=== PATIENT | male | born 1950 | race American Indian/Alaskan Native ===

== ENCOUNTER 2016-12-18 19:37 | Emergency (ER) | payer MEDICARE ==
[2016-12-18 19:58] VITALS: BP 176/106
[2016-12-18 20:57] LABS: Basophils % (Auto) 0.7 % (0.0-1.8); Hematocrit 35.6 % (35.5-45.6); Hemoglobin 11.1 gm/dl (11.8-15.2); Mean Corpuscular HGB Conc 31 % (32-34); Mean Corpuscular Volume 83 fl (84-94); Platelet Count 149 K/mm3 (140-440); Red Blood Count 4.31 M/mm3 (3.65-5.03); Red Cell Distribution Width 18.6 % (13.2-15.2); White Blood Count 5.2 K/mm3 (4.5-11.0)
[2016-12-18 20:59] LABS: Mean Corpuscular Hemoglobin 26 pg (28-32)
[2016-12-18 21:05] LABS: Anion Gap 18 mmol/L; Blood Urea Nitrogen 15 mg/dL (9-20); Carbon Dioxide 27 mmol/L (22-30); Chloride 106.5 mmol/L (98-107); Glucose 84 mg/dL (75-100); Sodium 147 mmol/L (137-145)
--- NOTE | 2016-12-19 06:14 | ED Elopement Review ---
ED Pt Elopement review - Results review Lab results: Laboratory Tests 12/18/16 12/18/16 20:23 20:23 WBC 5.2 RBC 4.31 Hgb 11.1 L Hct 35.6 MCV 83 L MCH 26 L MCHC 31 L RDW 18.6 H Plt Count 149 Lymph % (Auto) 34.4 [place] % (Auto) 9.5 H Eos % (Auto) 2.0 Baso % (Auto) 0.7 Lymph # 1.8 [place] # 0.5 Eos # 0.1 Baso # 0.0 Seg Neutrophils % 53.4 Seg Neutrophils # 2.8 Sodium 147 H Potassium 4.0 Chloride 106.5 Carbon Dioxide 27 Anion Gap 18 BUN 15 Creatinine 1.0 Estimated GFR > 60 BUN/Creatinine Ratio 15.00 Glucose 84 Calcium 9.0 Troponin T < 0.010 - Call Back decision Pt Call Back Decision: No action required
== END 2016-12-19 00:02 | disposition left against medical advice (07) ==
LOC: ED 19:37
DX: R07.9 Chest pain, unspecified (principal); M54.2 Cervicalgia; I50.9 Heart failure, unspecified; J44.9 Chronic obstructive pulmonary disease, unspecified; I63.9 Cerebral infarction, unspecified; I25.2 Old myocardial infarction; I48.91 Unspecified atrial fibrillation; Z95.0 Presence of cardiac pacemaker; Z87.891 Personal history of nicotine dependence; Z53.21 Procedure and treatment not carried out due to patient leaving prior to being seen by health care provider
CPT/HCPCS: 36415; 80048; 84484; 85025; 93005; 93010

== ENCOUNTER 2017-01-01 22:24 | Emergency (ER) | payer MEDICARE ==
[2017-01-02 00:29] LABS: Basophils % (Auto) 0.4 % (0.0-1.8); Eosinophils % (Auto) 0.2 % (0.0-4.3); Mean Corpuscular HGB Conc 30 % (32-34); Mean Corpuscular Volume 82 fl (84-94); Platelet Count 184 K/mm3 (140-440); Red Blood Count 4.68 M/mm3 (3.65-5.03); Red Cell Distribution Width 18.3 % (13.2-15.2); White Blood Count 7.3 K/mm3 (4.5-11.0)
[2017-01-02 00:36] LABS: BUN/Creatinine Ratio 13.63; Blood Urea Nitrogen 15 mg/dL (9-20); Calcium 9.3 mg/dL (8.4-10.2); Carbon Dioxide 24 mmol/L (22-30); Glucose 83 mg/dL (75-100)
[2017-01-02 00:37] LABS: Anion Gap 22 mmol/L; Chloride 98.9 mmol/L (98-107); Hematocrit 38.3 % (35.5-45.6); Hemoglobin 11.6 gm/dl (11.8-15.2); Mean Corpuscular Hemoglobin 25 pg (28-32); Potassium 3.4 mmol/L (3.6-5.0); Sodium 141 mmol/L (137-145)
[2017-01-02 00:45] LABS: INR 1.53 (0.87-1.13); Partial Thromboplastin Time 26.4 Sec. (24.2-36.6)
[2017-01-02 05:20] VITALS: BP 136/93
[2017-01-02] MEDS ORDERED: DIPRIVAN 10 MG/ML IV ONE (09:29)
[2017-01-02] MEDS ORDERED: SUBLIMAZE ONE (09:29)
--- NOTE | 2017-01-02 09:53 | XRay Report ---
CHEST 2 VIEWS: INDICATION: Chest pain. COMPARISON: 09/18/2016 FINDINGS: PA and lateral chest radiographs demonstrate smaller/less pronounced cardiomediastinal silhouette. Stable right-sided dual chamber pacemaker, aortic knob calcifications and thoracic spondylosis. Mild horizontal right basilar atelectasis appears new. Clear remainder lungs. CONCLUSION: New mild right basilar atelectasis and interval resolution of mild congestion/cardiomegaly, as described. Please correlate. Thank you for the opportunity to participate in this patient's care.
== END 2017-01-02 05:20 | disposition left against medical advice (07) ==
LOC: ED 22:24
DX: R07.9 Chest pain, unspecified (principal); M54.2 Cervicalgia; Z53.21 Procedure and treatment not carried out due to patient leaving prior to being seen by health care provider
CPT/HCPCS: 36415; 71020; 80048; 84484; 85025; 85610; 85730; 93005; 93010; J2704; J3010

== ENCOUNTER 2017-01-20 23:33 | Emergency (ER) | payer MEDICARE | END 2017-01-21 00:50 | disposition left against medical advice (07) | LOC: ED 23:33 | DX: H57.11 Ocular pain, right eye (principal); Z53.21 Procedure and treatment not carried out due to patient leaving prior to being seen by health care provider ==

== ENCOUNTER 2017-01-28 23:02 | Emergency (ER) | payer MEDICARE ==
[2017-01-29 04:53] VITALS: BP 142/101
[2017-01-29 05:57] LABS: INR 1.63 (0.87-1.13)
[2017-01-29 05:58] LABS: Partial Thromboplastin Time 29.8 Sec. (24.2-36.6)
[2017-01-29 06:04] LABS: Anion Gap 18 mmol/L; Blood Urea Nitrogen 22 mg/dL (9-20); Calcium 9.1 mg/dL (8.4-10.2); Carbon Dioxide 24 mmol/L (22-30); Chloride 103.8 mmol/L (98-107); Glucose 94 mg/dL (75-100); Potassium 4.4 mmol/L (3.6-5.0); Sodium 141 mmol/L (137-145)
[2017-01-29 06:07] LABS: Hematocrit 32.9 % (35.5-45.6); Hemoglobin 10.3 gm/dl (11.8-15.2); Mean Corpuscular HGB Conc 31 % (32-34); Mean Corpuscular Volume 79 fl (84-94); Platelet Count 169 K/mm3 (140-440); Red Blood Count 4.15 M/mm3 (3.65-5.03); Red Cell Distribution Width 17.4 % (13.2-15.2); White Blood Count 4.4 K/mm3 (4.5-11.0)
[2017-01-29 06:09] LABS: Mean Corpuscular Hemoglobin 25 pg (28-32)
[2017-01-29 07:03] LABS: Diff Status Complete
[2017-01-29 07:05] LABS: Basophils % (Auto) 1.1 % (0.0-1.8); Eosinophils % (Auto) 2.1 % (0.0-4.3)
--- NOTE | 2017-01-30 21:19 | ED Elopement Review ---
ED Pt Elopement review - Results review Lab results: Laboratory Tests 01/29/17 01/29/17 01/29/17 05:24 05:24 05:24 WBC 4.4 L RBC 4.15 Hgb 10.3 L Hct 32.9 L MCV 79 L MCH 25 L MCHC 31 L RDW 17.4 H Plt Count 169 Lymph % (Auto) 26.6 [place] % (Auto) 12.5 H Eos % (Auto) 2.1 Baso % (Auto) 1.1 Lymph # 1.2 [place] # 0.6 Eos # 0.1 Baso # 0.1 Add Manual Diff Complete Seg Neutrophils % 57.7 Seg Neutrophils # 2.5 PT 19.3 H INR 1.63 H APTT 29.8 Sodium 141 Potassium 4.4 Chloride 103.8 Carbon Dioxide 24 Anion Gap 18 BUN 22 H Creatinine 1.0 Estimated GFR > 60 BUN/Creatinine Ratio 22.00 Glucose 94 Calcium 9.1 - Call Back decision Pt Call Back Decision: No action required
== END 2017-01-29 06:20 | disposition left against medical advice (07) ==
LOC: ED 23:02
DX: M79.89 Other specified soft tissue disorders (principal); M25.571 Pain in right ankle and joints of right foot; M25.572 Pain in left ankle and joints of left foot; Z53.21 Procedure and treatment not carried out due to patient leaving prior to being seen by health care provider
CPT/HCPCS: 36415; 80048; 85025; 85610; 85730; 93005; 93010

== ENCOUNTER 2017-02-01 22:14 | Emergency (ER) | payer MEDICARE ==
[2017-02-01 22:33] VITALS: BP 113/74
== END 2017-02-02 01:35 | disposition left against medical advice (07) ==
LOC: ED 22:14
DX: R06.02 Shortness of breath (principal); I50.9 Heart failure, unspecified; J44.9 Chronic obstructive pulmonary disease, unspecified; I63.9 Cerebral infarction, unspecified; I25.2 Old myocardial infarction; I10 Essential (primary) hypertension; Z95.0 Presence of cardiac pacemaker; Z53.21 Procedure and treatment not carried out due to patient leaving prior to being seen by health care provider

== ENCOUNTER 2017-02-03 23:18 | Emergency (ER) | payer MEDICARE ==
[2017-02-04 00:27] LABS: Basophils % (Auto) 0.5 % (0.0-1.8); Eosinophils % (Auto) 1.6 % (0.0-4.3); Hematocrit 36.3 % (35.5-45.6); Hemoglobin 11.3 gm/dl (11.8-15.2); Mean Corpuscular HGB Conc 31 % (32-34); Mean Corpuscular Volume 79 fl (84-94); Platelet Count 170 K/mm3 (140-440); Red Blood Count 4.58 M/mm3 (3.65-5.03); Red Cell Distribution Width 17.7 % (13.2-15.2)
[2017-02-04 00:35] LABS: Mean Corpuscular Hemoglobin 25 pg (28-32)
[2017-02-04 00:38] LABS: INR 2.01 (0.87-1.13)
[2017-02-04 00:50] LABS: Anion Gap 17 mmol/L; BUN/Creatinine Ratio 13.63; Blood Urea Nitrogen 15 mg/dL (9-20); Calcium 9.2 mg/dL (8.4-10.2); Carbon Dioxide 26 mmol/L (22-30); Glucose 76 mg/dL (75-100); Potassium 4.1 mmol/L (3.6-5.0); Sodium 142 mmol/L (137-145)
[2017-02-04 05:04] VITALS: BP 166/105
--- NOTE | 2017-02-06 01:06 | ED Elopement Review ---
ED Pt Elopement review - Results review Lab results: Laboratory Tests 02/04/17 02/04/17 02/04/17 00:01 00:01 00:01 WBC 5.0 RBC 4.58 Hgb 11.3 L Hct 36.3 MCV 79 L MCH 25 L MCHC 31 L RDW 17.7 H Plt Count 170 Lymph % (Auto) 31.8 [place] % (Auto) 14.5 H Eos % (Auto) 1.6 Baso % (Auto) 0.5 Lymph # 1.6 [place] # 0.7 Eos # 0.1 Baso # 0.0 Seg Neutrophils % 51.6 Seg Neutrophils # 2.6 PT 22.8 H INR 2.01 H Sodium 142 Potassium 4.1 Chloride 103.0 Carbon Dioxide 26 Anion Gap 17 BUN 15 Creatinine 1.1 Estimated GFR > 60 BUN/Creatinine Ratio 13.63 Glucose 76 Calcium 9.2 - Call Back decision Pt Call Back Decision: No action required
== END 2017-02-04 05:00 | disposition left against medical advice (07) ==
LOC: ED 23:18
DX: M79.652 Pain in left thigh (principal); I50.9 Heart failure, unspecified; J44.9 Chronic obstructive pulmonary disease, unspecified; I25.2 Old myocardial infarction; I10 Essential (primary) hypertension; Z95.0 Presence of cardiac pacemaker; Z53.21 Procedure and treatment not carried out due to patient leaving prior to being seen by health care provider
CPT/HCPCS: 36415; 80048; 85025; 85610

== ENCOUNTER 2017-02-05 23:15 | Emergency (ER) | payer MEDICARE ==
[2017-02-06] MEDS ORDERED: DUONEB 0.5 MG-3 MG/3 ML SOLN IH ONE (01:29)
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
[2017-02-06 02:31] LABS: Basophils % (Auto) 1.8 % (0.0-1.8); Eosinophils % (Auto) 1.5 % (0.0-4.3); Hematocrit 33.1 % (35.5-45.6); Hemoglobin 10.4 gm/dl (11.8-15.2); Mean Corpuscular HGB Conc 31 % (32-34); Mean Corpuscular Hemoglobin 25 pg (28-32); Mean Corpuscular Volume 78 fl (84-94); Platelet Count 143 K/mm3 (140-440); Red Blood Count 4.23 M/mm3 (3.65-5.03); Red Cell Distribution Width 17.6 % (13.2-15.2); White Blood Count 4.3 K/mm3 (4.5-11.0)
[2017-02-06 02:48] LABS: Anion Gap 17 mmol/L; BUN/Creatinine Ratio 14.54; Blood Urea Nitrogen 16 mg/dL (9-20); Calcium 8.8 mg/dL (8.4-10.2); Carbon Dioxide 24 mmol/L (22-30); Chloride 104.8 mmol/L (98-107); Glucose 85 mg/dL (75-100); Potassium 4.3 mmol/L (3.6-5.0); Sodium 141 mmol/L (137-145)
[2017-02-06 02:55] LABS: Partial Thromboplastin Time < 20.0 Sec. (24.2-36.6)
[2017-02-06 03:26] VITALS: BP 145/87
[2017-02-06 03:52] LABS: INR > 17.67 (0.87-1.13)
--- NOTE | 2017-02-06 08:51 | XRay Report ---
Single view chest: Compared to 01/14/17. History: Dyspnea. Findings: Borderline cardiomegaly. Trachea is midline. Low volume lungs. Mild pulmonary venous congestion. No consolidation or pleural effusion. Stable pacemaker. Impression: Pulmonary venous congestion may be due to low volume lungs , possibility of early CHF cannot be excluded.
== END 2017-02-06 03:57 | disposition left against medical advice (07) ==
LOC: ED 23:15
DX: R06.00 Dyspnea, unspecified (principal); R79.1 Abnormal coagulation profile; I10 Essential (primary) hypertension; I25.2 Old myocardial infarction; I50.9 Heart failure, unspecified; J44.9 Chronic obstructive pulmonary disease, unspecified; Z95.0 Presence of cardiac pacemaker; Z86.73 Personal history of transient ischemic attack (TIA), and cerebral infarction without residual deficits
CPT/HCPCS: 36415; 71010; 80048; 83880; 84484; 85025; 85610; 85730; 93005; 93010; 94640

== ENCOUNTER 2017-09-12 10:11 | Emergency (ER) | payer MEDICARE ==
[2017-09-12 11:01] VITALS: BP 133/77
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
[2017-09-12 11:43] LABS: Basophils % (Auto) 0.6 % (0.0-1.8); Eosinophils % (Auto) 1.4 % (0.0-4.3); Hematocrit 40.5 % (35.5-45.6); Mean Corpuscular HGB Conc 32 % (32-34); Mean Corpuscular Hemoglobin 28 pg (28-32); Mean Corpuscular Volume 88 fl (84-94); Platelet Count 167 K/mm3 (140-440); Red Blood Count 4.58 M/mm3 (3.65-5.03); Red Cell Distribution Width 14.7 % (13.2-15.2); White Blood Count 5.9 K/mm3 (4.5-11.0)
[2017-09-12 11:55] LABS: INR 0.97 (0.87-1.13)
[2017-09-12 11:56] LABS: Partial Thromboplastin Time 25.1 Sec. (24.2-36.6)
[2017-09-12 12:07] LABS: Alanine Aminotransferase 21 units/L (7-56); Albumin 4.1 g/dL (3.9-5); Albumin/Globulin Ratio 1.6 %; Alkaline Phosphatase 48 units/L (35-129); Anion Gap 16 mmol/L; BUN/Creatinine Ratio 14; Blood Urea Nitrogen 17 mg/dL (9-20); Calcium 9.2 mg/dL (8.4-10.2); Carbon Dioxide 31 mmol/L (22-30); Chloride 104.9 mmol/L (98-107); Glucose 75 mg/dL (75-100); Potassium 3.8 mmol/L (3.6-5.0); Sodium 148 mmol/L (137-145); Total Protein 6.7 g/dL (6.3-8.2)
--- NOTE | 2017-09-12 14:10 | XRay Report ---
Chest 2 views: Compared to 07/15/17. History: Chest pain. Findings: Normal cardiomediastinal silhouette. Trachea is midline. No consolidation, pneumothorax or pleural effusion. Stable pacemaker. Impression: No acute cardiopulmonary findings.
--- NOTE | 2017-09-13 07:22 | Vascular Lab Report ---
LEFT UPPER EXTREMITY VENOUS DUPLEX: REASON FOR EXAM: Pain of the left upper extremity COMMENTS ON THE LEFT: All arm veins visualized are freely compressible without evidence of internal echogenicity. The subclavian and internal jugular veins are free of thrombus. Flow is spontaneous and phasic throughout. COMMENTS ON THE RIGHT: The subclavian and internal jugular veins are free of thrombus. IMPRESSION: No evidence of acute or chronic deep venous thrombosis in the left upper extremity.
== END 2017-09-12 20:10 | disposition left against medical advice (07) ==
LOC: ED 10:11
DX: R51 Headache (principal); M54.2 Cervicalgia; Z53.21 Procedure and treatment not carried out due to patient leaving prior to being seen by health care provider
CPT/HCPCS: 36415; 71020; 80053; 83880; 84484; 85025; 85610; 85730; 93005; 93010

== ENCOUNTER 2017-09-15 19:17 | Inpatient (IN) | payer MEDICARE ==
[2017-09-15 20:10] LABS: Basophils % (Auto) 0.9 % (0.0-1.8); Eosinophils % (Auto) 1.1 % (0.0-4.3); Hematocrit 37.7 % (35.5-45.6); Hemoglobin 12.2 gm/dl (11.8-15.2); Mean Corpuscular HGB Conc 32 % (32-34); Mean Corpuscular Hemoglobin 29 pg (28-32); Mean Corpuscular Volume 89 fl (84-94); Platelet Count 142 K/mm3 (140-440); Red Blood Count 4.25 M/mm3 (3.65-5.03); Red Cell Distribution Width 14.4 % (13.2-15.2); White Blood Count 5.2 K/mm3 (4.5-11.0)
[2017-09-15 20:20] LABS: INR 0.93 (0.87-1.13); Partial Thromboplastin Time 21.9 Sec. (24.2-36.6)
[2017-09-15 20:32] LABS: Creatine Kinase 175 units/L (55-170)
[2017-09-15 20:44] LABS: Alanine Aminotransferase 26 units/L (7-56); Albumin 3.7 g/dL (3.9-5); Albumin/Globulin Ratio 1.7 %; Alkaline Phosphatase 56 units/L (35-129); Anion Gap 13 mmol/L; BUN/Creatinine Ratio 10; Blood Urea Nitrogen 10 mg/dL (9-20); Calcium 8.9 mg/dL (8.4-10.2); Carbon Dioxide 30 mmol/L (22-30); Chloride 104.5 mmol/L (98-107); Glucose 83 mg/dL (75-100); Potassium 4.6 mmol/L (3.6-5.0); Sodium 143 mmol/L (137-145); Total Protein 5.9 g/dL (6.3-8.2)
[2017-09-15] MEDS ORDERED: DILAUDID IV ONE (21:09)
--- NOTE | 2017-09-15 21:09 | Cat Scan Report ---
FINAL REPORT EXAM: CT HEAD/BRAIN WO CON HISTORY: suspected stroke TECHNIQUE: Standard unenhanced CT of the head at 5.0 millimeter axial increments. PRIORS: CT head 07/15/2017 FINDINGS: The ventricular system is normal in size and configuration. There is no evidence for parenchymal volume loss. There is no evidence for mass lesion, mass effect, midline shift, acute intracranial hemorrhage, or acute ischemia/ infarction. No evidence for acute skull fracture is seen. No abnormality in the overlying scalp soft tissues is seen. Visualized paranasal sinuses are clear. IMPRESSION: Negative CT of the head. No acute intracranial process noted. No change.
--- NOTE | 2017-09-15 22:09 | Emergency Department Report ---
ED Neuro Deficit HPI - General Chief Complaint: Neuro Symptoms/Deficit Stated Complaint: GENERAL ILLNESS Time Seen by Provider: 09/15/17 20:50 Source: patient, EMS Mode of arrival: Stretcher Limitations: No Limitations - History of Present Illness Initial Comments: 66 YO MALE WHO HAS A H/O MULTIPLE CVA AT 1500 TODAY BEGAN LEFT SIDED NECK PAIN, WEAKNESS IN HIS LEFT LEG AND ARM. PT HAS A LEFT SIDED CVA ABOUT A MONTH AGO WHICH LEFT HIM WITH RESIDUAL LEFT SIDED WEAKNESS. DENIES ANY SPEECH PROBLEMS , THOUGH PROBLEMS WHILE THESE SXS WERE OCCURING. HIS NECK PAIN HE CONSIDERS TO BE A 06/15. -: Sudden History of same: Yes Place: home Severity: moderate Quality: weak Improves With: rest Worsens With: none On Anticoagulants: Yes Context: sudden onset Associated Symptoms: other (NECK PAIN) Treatments Prior to Arrival: none - Related Data Home Medications: Home Medications Medication Instructions Recorded Confirmed Last Taken Budesoni/Formotero 160-4.5(Nf) 2 puff IH BID 05/13/16 07/15/17 05/13/16 [Symbicort 160-4.5 (Nf)] Furosemide [Lasix TAB] 40 mg PO DAILY PRN 02/06/17 07/15/17 Unknown Lisinopril [Zestril TAB] 10 mg PO QDAY 06/11/17 07/15/17 Unknown Previous Rx's Medication Instructions Recorded Last Taken Type ALBUTEROL Inhaler [ProAir HFA 2 puff IH QID PRN #30 container 09/20/16 05/13/16 Rx Inhaler] Simvastatin [Zocor TAB] 80 mg PO QHS #30 tablet 09/27/16 Unknown Rx ALBUTEROL NEB's [Proventil 0.083% 2.5 mg IH QIDRT PRN #30 day 07/19/17 Unknown Rx NEBS] Apixaban [Eliquis] 5 mg PO BID #30 day 07/19/17 Unknown Rx Carvedilol [Coreg] 25 mg PO BID #60 tablet 07/19/17 Unknown Rx Methimazole 20 mg PO DAILY #30 day 07/19/17 Unknown Rx Allergies/Adverse Reactions: Allergies Allergy/AdvReac Type Severity Reaction Status Date / Time No Known Allergies Allergy Verified 09/15/17 19:29 ED Review of Systems ROS: Stated complaint: GENERAL ILLNESS Other details as noted in HPI Constitutional: denies: chills, fever Eyes: denies: eye pain, eye discharge, vision change ENT: denies: ear pain, throat pain Respiratory: denies: cough, shortness of breath, wheezing Cardiovascular: denies: chest pain, palpitations Endocrine: no symptoms reported Gastrointestinal: denies: abdominal pain, nausea, diarrhea Genitourinary: denies: urgency, dysuria Musculoskeletal: other (NECK PAIN). denies: back pain, joint swelling, arthralgia Skin: denies: rash, lesions Neurological: denies: headache, weakness, paresthesias Psychiatric: denies: anxiety, depression Hematological/Lymphatic: denies: easy bleeding, easy bruising ED Past Medical Hx - Past Medical History Previous Medical History?: Yes Hx Hypertension: Yes Hx CVA: Yes Hx Heart Attack/AMI: Yes Hx Congestive Heart Failure: Yes Hx Diabetes: No Hx Pulmonary Embolism: No Hx Kidney Stones: No Hx Asthma: No Hx COPD: Yes Hx Tuberculosis: No Hx Dementia: No Hx HIV: No Additional medical history: Afib - Surgical History Past Surgical History?: Yes Hx Coronary Stent: Yes Hx Pacemaker: Yes Hx Cholecystectomy: No - Social History Smoking Status: Former Smoker Substance Use Type: None - Medications Home Medications: Home Medications Medication Instructions Recorded Confirmed Last Taken Type Budesoni/Formotero 160-4.5(Nf) 2 puff IH BID 05/13/16 07/15/17 05/13/16 History [Symbicort 160-4.5 (Nf)] ALBUTEROL Inhaler [ProAir HFA 2 puff IH QID PRN #30 container 09/20/16 07/15/17 05/13/16 Rx Inhaler] Simvastatin [Zocor TAB] 80 mg PO QHS #30 tablet 09/27/16 07/15/17 Unknown Rx Furosemide [Lasix TAB] 40 mg PO DAILY PRN 02/06/17 07/15/17 Unknown History Lisinopril [Zestril TAB] 10 mg PO QDAY 06/11/17 07/15/17 Unknown History ALBUTEROL NEB's [Proventil 0.083% 2.5 mg IH QIDRT PRN #30 day 07/19/17 Unknown Rx NEBS] Apixaban [Eliquis] 5 mg PO BID #30 day 07/19/17 Unknown Rx Carvedilol [Coreg] 25 mg PO BID #60 tablet 07/19/17 Unknown Rx Methimazole 20 mg PO DAILY #30 day 07/19/17 07/15/17 Unknown Rx ED Neuro Physical Exam - General Limitations: No Limitations General appearance: alert, in no apparent distress Suspected Stroke: Yes - Head Head exam: Present: atraumatic, normocephalic - Eye Eye exam: Present: normal appearance - ENT ENT exam: Present: mucous membranes moist - Neck Neck exam: Present: normal inspection - Respiratory Respiratory exam: Present: normal lung sounds bilaterally. Absent: respiratory distress - Cardiovascular Cardiovascular Exam: Present: regular rate, normal rhythm, normal heart sounds. Absent: systolic murmur, diastolic murmur, rubs, gallop - GI/Abdominal GI/Abdominal exam: Present: soft, normal bowel sounds. Absent: tenderness, guarding, rebound - Rectal Rectal exam: Present: deferred - Extremities Exam Extremities exam: Present: normal inspection - Expanded Lower Extremity Exam Left Neuro vascular tendon exam: Present: motor deficit (3/5 WEAKNESS ), sensory deficit (NUMB COMPARED TO RIGHT LEG) - Back Exam Back exam: Present: normal inspection - Neurological Exam Neurological exam: Present: alert, oriented X3, CN II-XII intact, abnormal gait (USES CANE), motor sensory deficit (LEFT SIDE UPPER AND LOWER), other (LEFT UPPER EXTREMITY DRIFT) - NIHSS Assessment Interval: Baseline (PT ASSESSED 5HR AFTER SXS ONSET) 1a. Level of Consciousness: alert 1b. LOC Questions: answers correctly 1c. LOC Commands: performs tasks correctly 2. Best Gaze: normal 3. Visual: no visual loss 4. Facial Palsy: normal symmetrical movement 5b. Motor Arm Right: no drift 5a. Motor Arm Left: drift 6a. Motor Leg Left: some gravity effort 6b. Motor Leg Right: no drift 7. Limb Ataxia: present 2 limbs 8. Sensory: mild/moderate sensory loss (SIDE) 9. Best Language: no aphasia 10. Dysarthria: normal 11. Extinction/Inattention: no abnormality Total Score: 6 Stroke Severity: Moderate Stroke - Psychiatric Psychiatric exam: Present: normal affect, normal mood - Skin Skin exam: Present: warm, dry, intact, normal color. Absent: rash ED Course Vital Signs 09/15/17 09/15/17 09/15/17 19:25 19:26 19:30 Temperature 97.4 F L Pulse Rate 61 62 60 Respiratory 18 13 18 Rate Blood Pressure 156/90 149/93 O2 Sat by Pulse 100 84 100 Oximetry 09/15/17 09/15/17 09/15/17 19:46 20:00 20:16 Temperature Pulse Rate 60 62 Respiratory 12 15 Rate Blood Pressure 148/92 148/92 148/92 O2 Sat by Pulse 99 98 100 Oximetry 09/15/17 09/15/17 09/15/17 20:30 20:46 21:00 Temperature Pulse Rate 61 61 60 Respiratory 10 L 9 L 12 Rate Blood Pressure 148/92 148/92 148/92 O2 Sat by Pulse 98 89 93 Oximetry 09/15/17 09/15/17 09/15/17 21:16 21:30 22:18 Temperature Pulse Rate 60 61 Respiratory 10 L 12 Rate Blood Pressure 152/85 152/85 141/92 O2 Sat by Pulse 90 88 95 Oximetry 09/15/17 09/15/17 09/15/17 22:30 22:46 23:00 Temperature Pulse Rate Respiratory Rate Blood Pressure 141/92 141/92 141/92 O2 Sat by Pulse 94 95 93 Oximetry 09/15/17 09/15/17 09/15/17 23:16 23:30 23:46 Temperature Pulse Rate Respiratory Rate Blood Pressure 133/83 133/83 133/83 O2 Sat by Pulse 97 93 89 Oximetry 09/16/17 09/16/17 00:00 00:35 Temperature 97.7 F Pulse Rate 61 Respiratory 18 Rate Blood Pressure 145/94 157/98 O2 Sat by Pulse 100 97 Oximetry - Lab Data Result diagrams: 09/15/17 20:00 09/15/17 20:00 Lab Results 09/15/17 09/15/17 09/15/17 Range/Units 20:00 20:00 20:00 WBC 5.2 (4.5-11.0) K/mm3 RBC 4.25 (3.65-5.03) M/mm3 Hgb 12.2 (11.8-15.2) gm/dl Hct 37.7 (35.5-45.6) % MCV 89 (84-94) fl MCH 29 (28-32) pg MCHC 32 (32-34) % RDW 14.4 (13.2-15.2) % Plt Count 142 (140-440) K/mm3 Lymph % (Auto) 30.3 (13.4-35.0) % [place] % (Auto) 11.2 H (0.0-7.3) % Eos % (Auto) 1.1 (0.0-4.3) % Baso % (Auto) 0.9 (0.0-1.8) % Lymph # 1.6 (1.2-5.4) K/mm3 [place] # 0.6 (0.0-0.8) K/mm3 Eos # 0.1 (0.0-0.4) K/mm3 Baso # 0.0 (0.0-0.1) K/mm3 Seg Neutrophils % 56.5 (40.0-70.0) % Seg Neutrophils # 3.0 (1.8-7.7) K/mm3 PT 12.9 (12.2-14.9) Sec. INR 0.93 (0.87-1.13) APTT 21.9 L (24.2-36.6) Sec. Thrombin Time 15.6 (15.1-19.6) Sec. Sodium (137-145) mmol/L Potassium (3.6-5.0) mmol/L Chloride (98-107) mmol/L Carbon Dioxide (22-30) mmol/L Anion Gap mmol/L BUN (9-20) mg/dL Creatinine (0.8-1.5) mg/dL Estimated GFR ml/min BUN/Creatinine Ratio % Glucose (75-100) mg/dL Calcium (8.4-10.2) mg/dL Total Bilirubin (0.1-1.2) mg/dL AST (5-40) units/L ALT (7-56) units/L Alkaline Phosphatase (35-129) units/L Total Creatine Kinase 175 H (55-170) units/L CK-MB (CK-2) 3.0 (0.0-4.0) ng/mL CK-MB (CK-2) Rel Index 1.7 (0-4) Troponin T < 0.010 (0.00-0.029) ng/mL Total Protein (6.3-8.2) g/dL Albumin (3.9-5) g/dL Albumin/Globulin Ratio % 09/15/ Range/Units 20:00 WBC (4.5-11.0) K/mm3 RBC (3.65-5.03) M/mm3 Hgb (11.8-15.2) gm/dl Hct (35.5-45.6) % MCV (84-94) fl MCH (28-32) pg MCHC (32-34) % RDW (13.2-15.2) % Plt Count (140-440) K/mm3 Lymph % (Auto) (13.4-35.0) % [place] % (Auto) (0.0-7.3) % Eos % (Auto) (0.0-4.3) % Baso % (Auto) (0.0-1.8) % Lymph # (1.2-5.4) K/mm3 [place] # (0.0-0.8) K/mm3 Eos # (0.0-0.4) K/mm3 Baso # (0.0-0.1) K/mm3 Seg Neutrophils % (40.0-70.0) % Seg Neutrophils # (1.8-7.7) K/mm3 PT (12.2-14.9) Sec. INR (0.87-1.13) APTT (24.2-36.6) Sec. Thrombin Time (15.1-19.6) Sec. Sodium 143 (137-145) mmol/L Potassium 4.6 D (3.6-5.0) mmol/L Chloride 104.5 (98-107) mmol/L Carbon Dioxide 30 (22-30) mmol/L Anion Gap 13 mmol/L BUN 10 (9-20) mg/dL Creatinine 1.0 (0.8-1.5) mg/dL Estimated GFR > 60 ml/min BUN/Creatinine Ratio 10 % Glucose 83 (75-100) mg/dL Calcium 8.9 (8.4-10.2) mg/dL Total Bilirubin 0.40 (0.1-1.2) mg/dL AST 19 (5-40) units/L ALT 26 (7-56) units/L Alkaline Phosphatase 56 (35-129) units/L Total Creatine Kinase (55-170) units/L CK-MB (CK-2) (0.0-4.0) ng/mL CK-MB (CK-2) Rel Index (0-4) Troponin T (0.00-0.029) ng/mL Total Protein 5.9 L (6.3-8.2) g/dL Albumin 3.7 L (3.9-5) g/dL Albumin/Globulin Ratio 1.7 % - EKG Data EKG shows normal: sinus rhythm, axis, intervals - Radiology Data Radiology results: report reviewed (CT HEAD; ANO ACUTEFINDINGS CTA NECK: NEGATIVE FOR CAROTID DISSECTION,MILD STENOSIS) Critical care attestation.: If time is entered above; I have spent that time in minutes in the direct care of this critically ill patient, excluding procedure time. ED Disposition Clinical Impression: Neck pain CVA (cerebral vascular accident) Qualifiers: CVA mechanism: unspecified Qualified Code(s): I63.9 - Cerebral infarction, unspecified Disposition: OP ADMIT IP TO THIS HOSP Is pt being admited?: Yes Condition: Stable Time of Disposition: 22:21
--- NOTE | 2017-09-15 22:22 | Cat Scan Report ---
FINAL REPORT PROCEDURE: CT ANGIO NECK TECHNIQUE: Computerized tomographic angiography of the head and neck was performed after the IV injection of iodinated nonionic contrast including image processing. The image data was postprocessed using 2-dimensional multiplanar reformatted (MPR) and 3-dimensional (MIP and/or volume rendered) techniques. HISTORY: left neck pain, cva sx,?dissection carotids COMPARISON: CTA exam dated May 13, 2016 FINDINGS: CTA head: Vertebral arteries appear codominant. Tiny right posterior communicating artery is suspected. P1 segments appear present. Tiny anterior communicating artery is seen. No intracranial arterial stenosis or aneurysm is seen. CTA neck: No vertebral artery stenosis or dissection is seen. Common carotid arteries display no abnormalities. In the bilateral carotid bifurcations there are small foci of partially calcified plaque. This causes less than 10 percent stenosis bilaterally. No carotid dissection is seen. IMPRESSION: Minimal plaque in the carotid bifurcations causes no significant stenosis. No abnormalities are seen with the [place] of [place].
[2017-09-15] MEDS ORDERED: DULCOLAX PR PRN (22:44)
[2017-09-15] MEDS ORDERED: TYLENOL PO PRN (22:44)
[2017-09-15] MEDS ORDERED: MILK OF MAGNESIA PO PRN (22:44)
[2017-09-15] MEDS ORDERED: ZOFRAN IV PRN (22:44)
--- NOTE | 2017-09-15 23:39 | History and Physical Report ---
History of Present Illness Date of examination: 09/16/17 Date of admission: 09/15/2017 Chief complaint: Chief complaint: Left-sided weakness since a.m. History of present illness: DELVIS: 66-year-old -[place] male with past medical history of cerebrovascular accident and able to walk with the help of cane comes in for acute onset of left -sided weakness especially in the lower extremity and unable to walk since this morning. Patient has severe weakness in the left lower extremity. Able to lift his leg a bit but unable to walk. No nasal regurgitation of fluids. No diplopia.no fever no chills.patient also has pain left side of the neck. Patient has history of multiple strokes in the past. - Past Medical History Previous Medical History?: Yes Hx Hypertension: Yes Hx CVA: Yes Hx Heart Attack/AMI: Yes Hx Congestive Heart Failure: Yes Hx COPD: Yes Additional medical history: Afib - Surgical History Past Surgical History?: Yes Hx Coronary Stent: Yes Hx Pacemaker: Yes Hx Cholecystectomy: No - Social History Smoking Status: Former Smoker Substance Use Type: None - Medications Home Medications: Home Medications Medication Instructions Recorded Confirmed Last Taken Type Budesoni/Formotero 160-4.5(Nf) 2 puff IH BID 05/13/16 07/15/17 05/13/16 History [Symbicort 160-4.5 (Nf)] ALBUTEROL Inhaler [ProAir HFA 2 puff IH QID PRN #30 container 09/20/16 07/15/17 05/13/16 Rx Inhaler] Simvastatin [Zocor TAB] 80 mg PO QHS #30 tablet 09/27/16 07/15/17 Unknown Rx Furosemide [Lasix TAB] 40 mg PO DAILY PRN 02/06/17 07/15/17 Unknown History Lisinopril [Zestril TAB] 10 mg PO QDAY 06/11/17 07/15/17 Unknown History ALBUTEROL NEB's [Proventil 0.083% 2.5 mg IH QIDRT PRN #30 day 07/19/17 Unknown Rx NEBS] Apixaban [Eliquis] 5 mg PO BID #30 day 07/19/17 Unknown Rx Carvedilol [Coreg] 25 mg PO BID #60 tablet 07/19/17 Unknown Rx Methimazole 20 mg PO DAILY #30 day 07/19/17 07/15/17 Unknown Rx Review of Systems ROS: Stated complaint: GENERAL ILLNESS Other details as noted in HPI Constitutional: denies: chills, fever Eyes: denies: eye pain, eye discharge, vision change ENT: denies: ear pain, throat pain Respiratory: denies: cough, shortness of breath, wheezing Cardiovascular: denies: chest pain, palpitations Endocrine: no symptoms reported Gastrointestinal: denies: abdominal pain, nausea, diarrhea Genitourinary: denies: urgency, dysuria Musculoskeletal: other (NECK PAIN). denies: back pain, joint swelling, arthralgia Skin: denies: rash, lesions Neurological: see HPI. Increased left-sided weakness. Psychiatric: denies: anxiety, depression Hematological/Lymphatic: denies: easy bleeding, easy bruising Medications and Allergies Allergies Allergy/AdvReac Type Severity Reaction Status Date / Time No Known Allergies Allergy Verified 09/15/17 19:29 Home Medications Medication Instructions Recorded Confirmed Last Taken Type Budesoni/Formotero 160-4.5(Nf) 2 puff IH BID 05/13/16 09/16/17 05/13/16 History [Symbicort 160-4.5 (Nf)] ALBUTEROL Inhaler [ProAir HFA 2 puff IH QID PRN #30 container 09/20/16 09/16/17 05/13/16 Rx Inhaler] Simvastatin [Zocor TAB] 80 mg PO QHS #30 tablet 09/27/16 09/16/17 Unknown Rx Furosemide [Lasix TAB] 40 mg PO DAILY PRN 02/06/17 09/16/17 Unknown History Lisinopril [Zestril TAB] 10 mg PO QDAY 06/11/17 09/16/17 Unknown History ALBUTEROL NEB's [Proventil 0.083% 2.5 mg IH QIDRT PRN #30 day 07/19/17 09/16/17 Unknown Rx NEBS] Apixaban [Eliquis] 5 mg PO BID #30 day 07/19/17 09/16/17 Unknown Rx Carvedilol [Coreg] 25 mg PO BID #60 tablet 07/19/17 09/16/17 Unknown Rx Methimazole 20 mg PO DAILY #30 day 07/19/17 09/16/17 Unknown Rx Active Meds: Active Medications Acetaminophen (Tylenol) 650 mg PO Q4H PRN PRN Reason: Pain MILD(1-3)/Fever >100.5/VILLEGAS Aspirin (Aspirin) 325 mg PO QDAY RADHA Bisacodyl (Dulcolax) 10 mg PA QDAY PRN PRN Reason: Constipation unrelieved by MOM Magnesium Hydroxide (Milk Of Magnesia) 30 ml PO Q4H PRN PRN Reason: Constipation Ondansetron HCl (Zofran) 4 mg IV Q8H PRN PRN Reason: N/V unrelieved by Reglan Oxycodone/Acetaminophen (Percocet 5/325) 1 tab PO Q6H PRN PRN Reason: Pain, Moderate (4-6) Exam - Physical Exam Narrative exam: Lying in bed comfortably - Constitutional Vitals: Temp Pulse Resp BP Pulse Ox 97.4 F L 60 12 148/92 93 09/15/17 19:25 09/15/17 21:00 09/15/17 21:00 09/15/17 21:00 09/15/17 21:00 General appearance: Present: no acute distress, well-nourished - EENT Eyes: Present: PERRL ENT: hearing intact, clear oral mucosa - Neck Neck: Present: supple, normal ROM - Respiratory Respiratory effort: normal Respiratory: bilateral: CTA - Cardiovascular Heart rate: 80 Rhythm: regular Heart Sounds: Present: S1 & S2. Absent: rub, click - Extremities Extremities: pulses symmetrical, No edema Peripheral Pulses: within normal limits - Abdominal General gastrointestinal: Present: soft, non-tender, non-distended, normal bowel sounds Male genitourinary: Present: normal - Integumentary Integumentary: Present: clear, warm, dry - Musculoskeletal Musculoskeletal: left sided weakness (power is 4 over 5 in left upper extrem 3/ 5 in left lower extremity) - Psychiatric Psychiatric: appropriate mood/affect, intact judgment & insight - Neurologic Neurologic: CNII-XII intact, moves all extremities, other (unable to walk) Results - Labs CBC & Chem 7: 09/15/17 20:00 09/15/17 20:00 Labs: Laboratory Last Values WBC 5.2 K/mm3 (4.5-11.0) 09/15/17 20:00 RBC 4.25 M/mm3 (3.65-5.03) 09/15/17 20:00 Hgb 12.2 gm/dl (11.8-15.2) 09/15/17 20:00 Hct 37.7 % (35.5-45.6) 09/15/17 20:00 MCV 89 fl (84-94) 09/15/17 20:00 MCH 29 pg (28-32) 09/15/17 20:00 MCHC 32 % (32-34) 09/15/17 20:00 RDW 14.4 % (13.2-15.2) 09/15/17 20:00 Plt Count 142 K/mm3 (140-440) 09/15/17 20:00 Lymph % (Auto) 30.3 % (13.4-35.0) 09/15/17 20:00 Whiteside % (Auto) 11.2 % (0.0-7.3) H 09/15/17 20:00 Eos % (Auto) 1.1 % (0.0-4.3) 09/15/17 20:00 Baso % (Auto) 0.9 % (0.0-1.8) 09/15/17 20:00 Lymph # 1.6 K/mm3 (1.2-5.4) 09/15/17 20:00 [place]iteside # 0.6 K/mm3 (0.0-0.8) 09/15/17 20:00 Eos # 0.1 K/mm3 (0.0-0.4) 09/15/17 20:00 Baso # 0.0 K/mm3 (0.0-0.1) 09/15/17 20:00 Seg Neutrophils % 56.5 % (40.0-70.0) 09/15/17 20:00 Seg Neutrophils # 3.0 K/mm3 (1.8-7.7) 09/15/17 20:00 PT 12.9 Sec. (12.2-14.9) 09/15/17 20:00 INR 0.93 (0.87-1.13) 09/15/17 20:00 APTT 21.9 Sec. (24.2-36.6) L 09/15/17 20:00 Thrombin Time 15.6 Sec. (15.1-19.6) 09/15/17 20:00 Sodium 143 mmol/L (137-145) 09/15/17 20:00 Potassium 4.6 mmol/L (3.6-5.0) D 09/15/17 20:00 Chloride 104.5 mmol/L (98-107) 09/15/17 20:00 Carbon Dioxide 30 mmol/L (22-30) 09/15/17 20:00 Anion Gap 13 mmol/L 09/15/17 20:00 BUN 10 mg/dL (9-20) 09/15/17 20:00 Creatinine 1.0 mg/dL (0.8-1.5) 09/15/17 20:00 Estimated GFR > 60 ml/min 09/15/17 20:00 BUN/Creatinine Ratio 10 % 09/15/17 20:00 Glucose 83 mg/dL (75-100) 09/15/17 20:00 Calcium 8.9 mg/dL (8.4-10.2) 09/15/17 20:00 Total Bilirubin 0.40 mg/dL (0.1-1.2) 09/15/17 20:00 AST 19 units/L (5-40) 09/15/17 20:00 ALT 26 units/L (7-56) 09/15/17 20:00 Alkaline Phosphatase 56 units/L (35-129) 09/15/17 20:00 Total Creatine Kinase 175 units/L (55-170) H 09/15/17 20:00 CK-MB (CK-2) 3.0 ng/mL (0.0-4.0) 09/15/17 20:00 CK-MB (CK-2) Rel Index 1.7 (0-4) 09/15/17 20:00 Troponin T < 0.010 ng/mL (0.00-0.029) 09/15/17 20:00 Total Protein 5.9 g/dL (6.3-8.2) L 09/15/17 20:00 Albumin 3.7 g/dL (3.9-5) L 09/15/17 20:00 Albumin/Globulin Ratio 1.7 % 09/15/17 20:00 Short CBC 09/15/17 Range/Units 20:00 WBC 5.2 (4.5-11.0) K/mm3 Hgb 12.2 (11.8-15.2) gm/dl Hct 37.7 (35.5-45.6) % Plt Count 142 (140-440) K/mm3 BMP 09/15/17 20:00 Sodium 143 Potassium 4.6 D Chloride 104.5 Carbon Dioxide 30 BUN 10 Creatinine 1.0 Glucose 83 Calcium 8.9 Cardiac Enzymes 09/15/17 Range/Units 20:00 Total Creatine Kinase 175 H (55-170) units/L CK-MB (CK-2) 3.0 (0.0-4.0) ng/mL Troponin T < 0.010 (0.00-0.029) ng/mL Liver Function 09/15/17 Range/Units 20:00 Total Bilirubin 0.40 (0.1-1.2) mg/dL AST 19 (5-40) units/L ALT 26 (7-56) units/L Alkaline Phosphatase 56 (35-129) units/L Albumin 3.7 L (3.9-5) g/dL - Imaging and Cardiology EKG: report reviewed (atrial paced complexes heart rate of 60.) Assessment and Plan Advance Directives: Yes (full code) VTE prophylaxis?: Chemical Plan of care discussed with patient/family: Yes - Patient Problems (1) Acute CVA (cerebrovascular accident) Current Visit: Yes Status: Acute Plan to address problem: Patient has new onset left-sided weakness.Acute CVA w/u even though he had multiple strokes.MRI MRA carotid duplex scan and echocardiogram ordered. Neurology consult ordered. (2) COPD (chronic obstructive pulmonary disease) Current Visit: Yes Status: Chronic Qualifiers: COPD type: C Chronic bronchitis type: C Emphysema type: unspecified Qualified Code(s): J43.9 - Emphysema, unspecified Plan to address problem: continue Symbicort inhaler and albuterol inhaler. Nebulizers if necessary. (3) Hyperlipidemia Current Visit: Yes Status: Chronic Qualifiers: Hyperlipidemia type: mixed hyperlipidemia Qualified Code(s): E78.2 - Mixed hyperlipidemia Plan to address problem: continue simvastatin 80 mg daily (4) Hypertension Current Visit: Yes Status: Chronic Qualifiers: Hypertension type: essential hypertension Qualified Code(s): I10 - Essential (primary) hypertension Plan to address problem: continue lisinopril 10 mg once a day and Coreg 25 mg twice a day (5) Hyperthyroidism Current Visit: Yes Status: Chronic Plan to address problem: continue methimazole 20 mg once a day (6) CHF (congestive heart failure) Current Visit: Yes Status: Chronic Qualifiers: Congestive heart failure type: combined Congestive heart failure chronicity : C Plan to address problem: continue Lasix (7) Coronary artery disease Current Visit: Yes Status: Chronic Qualifiers: Coronary Disease-Associated Artery/Lesion type: [place] artery [place] vs. transplanted heart: N Associated angina: with unspecified angina Plan to address problem: Eliquis 5 mg po bid (8) DVT prophylaxis Current Visit: Yes Status: Acute Plan to address problem: Lovenox 40 mg subcutaneous daily
[2017-09-16] MEDS: ASPIRIN PO SCH (09:06)
--- NOTE | 2017-09-16 12:19 | Consultation ---
History of Present Illness Consult date: 09/16/17 History of present illness: I have dictated a complete note on this patient and there is new stroke ischemic of the right brain prior hx of 3 plus strokes due to a fib he has been in multiple hospitals and is on Eliquis therapy Medications and Allergies Allergies Allergy/AdvReac Type Severity Reaction Status Date / Time No Known Allergies Allergy Verified 09/15/17 19:29 Home Medications Medication Instructions Recorded Confirmed Last Taken Type Budesoni/Formotero 160-4.5(Nf) 2 puff IH BID 05/13/16 09/16/17 05/13/16 History [Symbicort 160-4.5 (Nf)] ALBUTEROL Inhaler [ProAir HFA 2 puff IH QID PRN #30 container 09/20/16 09/16/17 05/13/16 Rx Inhaler] Simvastatin [Zocor TAB] 80 mg PO QHS #30 tablet 09/27/16 09/16/17 Unknown Rx Furosemide [Lasix TAB] 40 mg PO DAILY PRN 02/06/17 09/16/17 Unknown History Lisinopril [Zestril TAB] 10 mg PO QDAY 06/11/17 09/16/17 Unknown History ALBUTEROL NEB's [Proventil 0.083% 2.5 mg IH QIDRT PRN #30 day 07/19/17 09/16/17 Unknown Rx NEBS] Apixaban [Eliquis] 5 mg PO BID #30 day 07/19/17 09/16/17 Unknown Rx Carvedilol [Coreg] 25 mg PO BID #60 tablet 07/19/17 09/16/17 Unknown Rx Methimazole 20 mg PO DAILY #30 day 07/19/17 09/16/17 Unknown Rx Rosuvastatin Calcium [Crestor] 40 mg PO QHS 09/16/17 09/16/17 Unknown History Active Meds: Active Medications Acetaminophen (Tylenol) 650 mg PO Q4H PRN PRN Reason: Pain MILD(1-3)/Fever >100.5/VILLEGAS Aspirin (Aspirin) 325 mg PO QDAY RADHA Last Admin: 09/16/17 09:06 Dose: 325 mg Bisacodyl (Dulcolax) 10 mg MA QDAY PRN PRN Reason: Constipation unrelieved by MOM Magnesium Hydroxide (Milk Of Magnesia) 30 ml PO Q4H PRN PRN Reason: Constipation Ondansetron HCl (Zofran) 4 mg IV Q8H PRN PRN Reason: N/V unrelieved by Reglan Oxycodone/Acetaminophen (Percocet 5/325) 1 tab PO Q6H PRN PRN Reason: Pain, Moderate (4-6) Physical Examination - Vital Signs Vital Signs: Vital Signs Temp Pulse Resp BP Pulse Ox 97.4 F L 61 18 156/90 100 09/15/17 19:25 09/15/17 19:25 09/15/17 19:25 09/15/17 19:25 09/15/17 19:25 Results - Laboratory Findings CBC and BMP: 09/15/17 20:00 09/15/17 20:00
[2017-09-16] MEDS: PERCOCET 5/325 PO PRN (15:37)
[2017-09-16] MEDS: COREG PO SCH ×2 (15:38→22:50)
[2017-09-16] MEDS: ELIQUIS PO SCH ×2 (15:38→22:50)
[2017-09-16] MEDS: ZESTRIL PO SCH (15:39)
[2017-09-16] MEDS ORDERED: SODIUM CHLORIDE FLUSH SYRINGE 10 ML IV PRN (16:39)
[2017-09-16] MEDS ORDERED: NACL 0.9% 1000 ML 1,000 ML IV SCH (17:00)
--- NOTE | 2017-09-16 22:27 | Progress Note ---
Assessment and Plan - Patient Problems (1) Acute CVA (cerebrovascular accident) Current Visit: Yes Status: Acute Plan to address problem: Patient has new onset left-sided weakness.Acute CVA w/u even though he had multiple strokes.MRI MRA carotid duplex scan and echocardiogram ordered. Neurology consult ordered. (2) COPD (chronic obstructive pulmonary disease) Current Visit: Yes Status: Chronic Qualifiers: COPD type: C Chronic bronchitis type: C Emphysema type: unspecified Qualified Code(s): J43.9 - Emphysema, unspecified Plan to address problem: continue Symbicort inhaler and albuterol inhaler. Nebulizers if necessary. (3) Hyperlipidemia Current Visit: Yes Status: Chronic Qualifiers: Hyperlipidemia type: mixed hyperlipidemia Qualified Code(s): E78.2 - Mixed hyperlipidemia Plan to address problem: continue simvastatin 80 mg daily (4) Hypertension Current Visit: Yes Status: Chronic Qualifiers: Hypertension type: essential hypertension Qualified Code(s): I10 - Essential (primary) hypertension Plan to address problem: continue lisinopril 10 mg once a day and Coreg 25 mg twice a day (5) Hyperthyroidism Current Visit: Yes Status: Chronic Plan to address problem: continue methimazole 20 mg once a day (6) CHF (congestive heart failure) Current Visit: Yes Status: Chronic Qualifiers: Congestive heart failure type: combined Congestive heart failure chronicity : C Plan to address problem: continue Lasix (7) Coronary artery disease Current Visit: Yes Status: Chronic Qualifiers: Coronary Disease-Associated Artery/Lesion type: [place] artery [place] vs. transplanted heart: N Associated angina: with unspecified angina Plan to address problem: Eliquis 5 mg po bid (8) DVT prophylaxis Current Visit: Yes Status: Acute Plan to address problem: Lovenox 40 mg subcutaneous daily Subjective Date of service: 09/16/17 Principal diagnosis: Acute CVA Interval history: Good improvement in LLE weakness.Able to go to Restroom using walker and Aide .Says he is still dragging his foot Objective - Exam Narrative Exam: Lying in bed comfortably - Constitutional Vitals: Vital Signs - 12hr 09/16/17 09/16/17 09/16/17 12:46 15:37 15:38 Temperature Pulse Rate 68 Respiratory 20 Rate Blood Pressure 134/68 O2 Sat by Pulse 97 Oximetry 09/16/17 16:00 Temperature 98.2 F Pulse Rate 60 Respiratory 20 Rate Blood Pressure 121/78 O2 Sat by Pulse 99 Oximetry General appearance: Present: no acute distress, well-nourished - EENT Eyes: PERRL, EOM intact ENT: hearing intact, clear oral mucosa Ears: bilateral: normal - Neck Neck: supple, normal ROM - Respiratory Respiratory effort: normal Respiratory: bilateral: CTA - Breasts Breasts: normal - Cardiovascular Rhythm: regular Heart Sounds: Present: S1 & S2. Absent: gallop, rub Extremities: pulses intact, No edema, normal color, Full ROM - Gastrointestinal General gastrointestinal: Present: soft, non-tender, non-distended, normal bowel sounds - Genitourinary Male genitourinary: normal - Integumentary Integumentary: clear, warm, dry - Musculoskeletal Musculoskeletal: 1, strength equal bilaterally - Neurologic Neurologic: focal deficits (LLE and LUE 3/5 power), moves all extremities - Psychiatric Psychiatric: memory intact, appropriate mood/affect, intact judgment & insight - Labs CBC & Chem 7: 09/15/17 20:00 09/15/17 20:00
[2017-09-17] MEDS: PERCOCET 5/325 PO PRN (04:58)
--- NOTE | 2017-09-17 08:19 | Consultation ---
HISTORY OF PRESENT ILLNESS: This is a 66-year-old black male that presents to [facility] for evaluation of acute onset of left-sided weakness. He has had 3 prior strokes interestingly, because of atrial fibrillation he has been hospitalized in all the major medical centers in [facility], [facility], [place], [place], [place], [facility] and has been diagnosed as having 3 strokes. He has been in rehabilitation. He apparently had been on Coumadin therapy before, then was switched to Eliquis. Not sure whether he missed any of his medication, but he started having severe headaches on the left side, came to this ED and was not seen, signed out AMA, then went back home, then noticed he was dragging his left leg. He returned with left-sided weakness. On my examination, he is weak in the left leg, left arm, but otherwise his speech is full. His ocular movements are full. Pupils are briskly reactive to light. Cranial nerves intact. Motor, sensory examination showed weakness of left side. He is fully alert, oriented, appropriate, does not have any form of hemiplegia or any parietal lobe syndrome on the right side, being demonstrated. No tremors or asterixis. No focal seizure activity is noted. The patient's general examination is otherwise benign. The patient, it should be noted, did come into the hospital using a cane, which was issued to him previously, I believe he had chronic left-sided weakness and his symptoms may simply be that he is weaker in his left side due to recurrent stroke. IMPRESSION: Strong history of stroke, at least 3 times in the past due to atrial fibrillation, cannot be sure of his compliance. He was taking Eliquis, previously took Coumadin but for reasons not clear his doctor switched him to Eliquis. At this point, he seems to have had a recurrent stroke, but he will be further assessed for this. JOB# [id number] ELIAS/LIZZETTE
[2017-09-17] MEDS: COREG PO SCH ×2 (12:58→21:17)
[2017-09-17] MEDS: ZESTRIL PO SCH (12:59)
[2017-09-17] MEDS: ELIQUIS PO SCH ×2 (12:59→21:14)
[2017-09-17] MEDS: ASPIRIN PO SCH (13:00)
--- NOTE | 2017-09-17 15:33 | Progress Note ---
Assessment and Plan - Patient Problems (1) Acute CVA (cerebrovascular accident) Current Visit: Yes Status: Acute Plan to address problem: Patient has new onset left-sided weakness.Acute CVA w/u even though he had multiple strokes.MRI MRA carotid duplex scan and echocardiogram ordered. Neurology consult ordered. MRI /MRA could not be done b/c of pacemaker (2) COPD (chronic obstructive pulmonary disease) Current Visit: Yes Status: Chronic Qualifiers: COPD type: C Chronic bronchitis type: C Emphysema type: unspecified Qualified Code(s): J43.9 - Emphysema, unspecified Plan to address problem: continue Symbicort inhaler and albuterol inhaler. Nebulizers if necessary. (3) Hyperlipidemia Current Visit: Yes Status: Chronic Qualifiers: Hyperlipidemia type: mixed hyperlipidemia Qualified Code(s): E78.2 - Mixed hyperlipidemia Plan to address problem: continue simvastatin 80 mg daily (4) Hypertension Current Visit: Yes Status: Chronic Qualifiers: Hypertension type: essential hypertension Qualified Code(s): I10 - Essential (primary) hypertension Plan to address problem: continue lisinopril 10 mg once a day and Coreg 25 mg twice a day (5) Hyperthyroidism Current Visit: Yes Status: Chronic Plan to address problem: continue methimazole 20 mg once a day (6) CHF (congestive heart failure) Current Visit: Yes Status: Chronic Qualifiers: Congestive heart failure type: combined Congestive heart failure chronicity : C Plan to address problem: continue Lasix (7) Coronary artery disease Current Visit: Yes Status: Chronic Qualifiers: Coronary Disease-Associated Artery/Lesion type: [place] artery [place] vs. transplanted heart: N Associated angina: with unspecified angina Plan to address problem: Eliquis 5 mg po bid (8) DVT prophylaxis Current Visit: Yes Status: Acute Plan to address problem: Lovenox 40 mg subcutaneous daily Subjective Date of service: 09/17/17 Principal diagnosis: Acute CVA Interval history: Good improvement in LLE weakness.Able to go to Restroom using walker and Aide .Says he is still dragging his foot Objective - Exam Narrative Exam: Lying in bed comfortably - Constitutional Vitals: Vital Signs - 12hr 09/17/17 09/17/17 04:56 07:30 Temperature 97.6 F 97.6 F Pulse Rate 61 64 Respiratory 18 19 Rate Blood Pressure 142/88 129/74 O2 Sat by Pulse 97 98 Oximetry General appearance: Present: no acute distress, well-nourished - EENT Eyes: PERRL, EOM intact ENT: hearing intact, clear oral mucosa Ears: bilateral: normal - Neck Neck: supple, normal ROM - Respiratory Respiratory effort: normal Respiratory: bilateral: CTA - Breasts Breasts: normal - Cardiovascular Rhythm: regular Heart Sounds: Present: S1 & S2. Absent: gallop, rub Extremities: pulses intact, No edema, normal color, Full ROM - Gastrointestinal General gastrointestinal: Present: soft, non-tender, non-distended, normal bowel sounds - Genitourinary Male genitourinary: normal - Integumentary Integumentary: clear, warm, dry - Musculoskeletal Musculoskeletal: 1, strength equal bilaterally - Neurologic Neurologic: focal deficits (LLE and LUE 3/5 power) - Psychiatric Psychiatric: memory intact, appropriate mood/affect, intact judgment & insight - Labs CBC & Chem 7: 09/15/17 20:00 09/15/17 20:00
[2017-09-18] MEDS ORDERED: ROXICODONE PO PRN (10:12)
[2017-09-18] MEDS: ASPIRIN PO SCH (10:38)
[2017-09-18] MEDS: ELIQUIS PO SCH ×2 (10:38→22:07)
[2017-09-18] MEDS: COREG PO SCH ×2 (10:38→22:08)
[2017-09-18] MEDS: ZESTRIL PO SCH (10:39)
--- NOTE | 2017-09-18 20:37 | Progress Note ---
Assessment and Plan - Patient Problems (1) Acute CVA (cerebrovascular accident) Current Visit: Yes Status: Acute Plan to address problem: Patient has new onset left-sided weakness.Acute CVA w/u even though he had multiple strokes.MRI MRA carotid duplex scan and echocardiogram ordered. Neurology consult ordered. MRI and MRA could not be done because of pacemaker. ECHO - EF 40 to 45 percent. May have recurrent emboli . May benefit from LORRIE Initiated on Eliquis (2) COPD (chronic obstructive pulmonary disease) Current Visit: Yes Status: Chronic Qualifiers: COPD type: C Chronic bronchitis type: C Emphysema type: unspecified Qualified Code(s): J43.9 - Emphysema, unspecified Plan to address problem: continue Symbicort inhaler and albuterol inhaler. Nebulizers if necessary. (3) Hyperlipidemia Current Visit: Yes Status: Chronic Qualifiers: Hyperlipidemia type: mixed hyperlipidemia Qualified Code(s): E78.2 - Mixed hyperlipidemia Plan to address problem: continue simvastatin 80 mg daily (4) Hypertension Current Visit: Yes Status: Chronic Qualifiers: Hypertension type: essential hypertension Qualified Code(s): I10 - Essential (primary) hypertension Plan to address problem: continue lisinopril 10 mg once a day and Coreg 25 mg twice a day (5) Hyperthyroidism Current Visit: Yes Status: Chronic Plan to address problem: continue methimazole 20 mg once a day (6) CHF (congestive heart failure) Current Visit: Yes Status: Chronic Qualifiers: Congestive heart failure type: combined Congestive heart failure chronicity : C Plan to address problem: continue Lasix (7) Coronary artery disease Current Visit: Yes Status: Chronic Qualifiers: Coronary Disease-Associated Artery/Lesion type: [place] artery [place] vs. transplanted heart: N Associated angina: with unspecified angina Plan to address problem: Eliquis 5 mg po bid (8) DVT prophylaxis Current Visit: Yes Status: Acute Plan to address problem: Lovenox 40 mg subcutaneous daily Subjective Date of service: 09/18/17 Principal diagnosis: Acute CVA Interval history: Good improvement in LLE weakness.Able to go to Restroom using walker and Aide .Says he is still dragging his foot Objective - Exam Narrative Exam: Lying in bed comfortably - Constitutional Vitals: Vital Signs - 12hr 09/18/17 09/18/17 09/18/17 10:38 12:12 16:50 Temperature 98.1 F 97.6 F Pulse Rate 62 61 72 Respiratory 16 20 Rate Blood Pressure 130/80 100/74 129/66 O2 Sat by Pulse 97 98 Oximetry 09/18/17 19:58 Temperature 98.2 F Pulse Rate 63 Respiratory 18 Rate Blood Pressure 105/70 O2 Sat by Pulse 96 Oximetry General appearance: Present: no acute distress, well-nourished - EENT Eyes: PERRL, EOM intact ENT: hearing intact, clear oral mucosa Ears: bilateral: normal - Neck Neck: supple, normal ROM - Respiratory Respiratory effort: normal Respiratory: bilateral: CTA - Breasts Breasts: normal - Cardiovascular Rhythm: regular Heart Sounds: Present: S1 & S2. Absent: gallop, rub Extremities: pulses intact, No edema, normal color, Full ROM - Gastrointestinal General gastrointestinal: Present: soft, non-tender, non-distended, normal bowel sounds - Genitourinary Male genitourinary: normal - Integumentary Integumentary: clear, warm, dry - Musculoskeletal Musculoskeletal: 1, strength equal bilaterally - Neurologic Neurologic: focal deficits (LUE and LLE weakness.3/5 power in lower extremity.4/ 5 in upper extremity) - Psychiatric Psychiatric: memory intact, appropriate mood/affect, intact judgment & insight - Labs CBC & Chem 7: 09/15/17 20:00 09/15/17 20:00
[2017-09-18] MEDS: AMBIEN PO PRN (22:07)
[2017-09-19] MEDS: ELIQUIS PO SCH ×2 (11:13→21:51)
[2017-09-19] MEDS: ASPIRIN PO SCH (11:13)
[2017-09-19] MEDS: ZESTRIL PO SCH (14:10)
[2017-09-19] MEDS: COREG PO SCH ×2 (14:10→21:52)
--- NOTE | 2017-09-19 16:20 | Progress Note ---
Assessment and Plan Assessment and plan: 66-year-old -[place] male with past medical history of cerebrovascular accident x 3 and able to walk with the help of cane comes in for acute onset of left-sided weakness especially in the lower extremity and unable to walk since this morning. Patient has severe weakness in the left lower extremity. Able to lift his leg a bit but unable to walk. No nasal regurgitation of fluids. No diplopia.no fever no chills.patient also has pain left side of the neck. Patient has history of multiple strokes in the past. (1) Acute CVA (cerebrovascular accident) Current Visit: Yes Status: Acute Plan to address problem: Patient has new onset left-sided weakness.Acute CVA w/u even though he had multiple strokes. LORRIE for AM. Neurology INPUT NOTED. PT/OT. Patient previously on Eliquis then changed to coumadin and now back to Eliquis. Unsure why so many changes and patients compliance although he states he is complaint. MRI and MRA could not be done because of pacemaker. CT OF THE BRAIN NEGATIVE FOR CVA. COMPLAINCE WITH MEDICATION ADVISED. ECHO - EF 40 to 45 percent. May have recurrent emboli . Initiated on Eliquis (2) COPD (chronic obstructive pulmonary disease) Current Visit: Yes Status: Chronic Qualifiers: COPD type: C Chronic bronchitis type: C Emphysema type: unspecified Qualified Code(s): J43.9 - Emphysema, unspecified Plan to address problem: continue Symbicort inhaler and albuterol inhaler. Nebulizers if necessary. (3) Hyperlipidemia Current Visit: Yes Status: Chronic Qualifiers: Hyperlipidemia type: mixed hyperlipidemia Qualified Code(s): E78.2 - Mixed hyperlipidemia Plan to address problem: continue simvastatin 80 mg daily (4) Hypertension Current Visit: Yes Status: Chronic Qualifiers: Hypertension type: essential hypertension Qualified Code(s): I10 - Essential (primary) hypertension Plan to address problem: continue lisinopril 10 mg once a day and Coreg 25 mg twice a day (5) Hyperthyroidism Current Visit: Yes Status: Chronic Plan to address problem: continue methimazole 20 mg once a day (6) CHF (congestive heart failure)- Systolic Current Visit: Yes Status: Chronic Qualifiers: Congestive heart failure type: combined Congestive heart failure chronicity : C Plan to address problem: continue Lasix (7) Coronary artery disease Current Visit: Yes Status: Chronic Qualifiers: Coronary Disease-Associated Artery/Lesion type: [place] artery [place] vs. 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 No nausea, vomiting, dysphagia, aphasia. Still with lower ext weakness left side. Patient focused on this. Hospitalist Physical - Physical exam Narrative exam: VITAL SIGNS: Reviewed. GENERAL: The patient appeared well nourished and normally developed. Vital signs as documented. HEAD: No signs of head trauma. EYES: Pupils are equal. Extraocular motions intact. EARS: Hearing grossly intact. MOUTH: Oropharynx is normal. NECK: No adenopathy, no JVD. CHEST: Chest with clear breath sounds bilaterally. No wheezes, rales, or rhonchi. CARDIAC: Regular rate and rhythm. S1 and S2, without murmurs, gallops, or rubs. VASCULAR: No Edema. Peripheral pulses normal and equal in all extremities. ABDOMEN: Soft, without detectable tenderness. No sign of distention. No rebound or guarding, and no masses palpated. Bowel Sounds normal. MUSCULOSKELETAL: Good range of motion of all major joints. Extremities without clubbing, cyanosis or edema. NEUROLOGIC EXAM: Alert and oriented x 3. focal deficits (LUE and LLE weakness.3/5 power in lower extremity.4/5 in upper extremity) Speech normal. Follows commands. PSYCHIATRIC: Mood normal. SKIN: No rash or lesions. - Constitutional Vitals: Temp Pulse Resp BP Pulse Ox 98.2 F 62 18 100/68 99 09/19/17 11:26 09/19/17 14:10 09/19/17 11:26 09/19/17 14:10 09/19/17 11:26 General appearance: Present: no acute distress, well-nourished Results - Labs CBC & Chem 7: 09/15/17 20:00 09/15/17 20:00 Labs: Laboratory Last Values WBC 5.2 K/mm3 (4.5-11.0) 09/15/17 20:00 RBC 4.25 M/mm3 (3.65-5.03) 09/15/17 20:00 Hgb 12.2 gm/dl (11.8-15.2) 09/15/17 20:00 Hct 37.7 % (35.5-45.6) 09/15/17 20:00 MCV 89 fl (84-94) 09/15/17 20:00 MCH 29 pg (28-32) 09/15/17 20:00 MCHC 32 % (32-34) 09/15/17 20:00 RDW 14.4 % (13.2-15.2) 09/15/17 20:00 Plt Count 142 K/mm3 (140-440) 09/15/17 20:00 Lymph % (Auto) 30.3 % (13.4-35.0) 09/15/17 20:00 [place] % (Auto) 11.2 % (0.0-7.3) H 09/15/17 20:00 Eos % (Auto) 1.1 % (0.0-4.3) 09/15/17 20:00 Baso % (Auto) 0.9 % (0.0-1.8) 09/15/17 20:00 Lymph # 1.6 K/mm3 (1.2-5.4) 09/15/17 20:00 [place] # 0.6 K/mm3 (0.0-0.8) 09/15/17 20:00 Eos # 0.1 K/mm3 (0.0-0.4) 09/15/17 20:00 Baso # 0.0 K/mm3 (0.0-0.1) 09/15/17 20:00 Seg Neutrophils % 56.5 % (40.0-70.0) 09/15/17 20:00 Seg Neutrophils # 3.0 K/mm3 (1.8-7.7) 09/15/17 20:00 PT 12.9 Sec. (12.2-14.9) 09/15/17 20:00 INR 0.93 (0.87-1.13) 09/15/17 20:00 APTT 21.9 Sec. (24.2-36.6) L 09/15/17 20:00 Thrombin Time 15.6 Sec. (15.1-19.6) 09/15/17 20:00 Sodium 143 mmol/L (137-145) 09/15/17 20:00 Potassium 4.6 mmol/L (3.6-5.0) D 09/15/17 20:00 Chloride 104.5 mmol/L (98-107) 09/15/17 20:00 Carbon Dioxide 30 mmol/L (22-30) 09/15/17 20:00 Anion Gap 13 mmol/L 09/15/17 20:00 BUN 10 mg/dL (9-20) 09/15/17 20:00 Creatinine 1.0 mg/dL (0.8-1.5) 09/15/17 20:00 Estimated GFR > 60 ml/min 09/15/17 20:00 BUN/Creatinine Ratio 10 % 09/15/17 20:00 Glucose 83 mg/dL (75-100) 09/15/17 20:00 Calcium 8.9 mg/dL (8.4-10.2) 09/15/17 20:00 Total Bilirubin 0.40 mg/dL (0.1-1.2) 09/15/17 20:00 AST 19 units/L (5-40) 09/15/17 20:00 ALT 26 units/L (7-56) 09/15/17 20:00 Alkaline Phosphatase 56 units/L (35-129) 09/15/17 20:00 Total Creatine Kinase 175 units/L (55-170) H 09/15/17 20:00 CK-MB (CK-2) 3.0 ng/mL (0.0-4.0) 09/15/17 20:00 CK-MB (CK-2) Rel Index 1.7 (0-4) 09/15/17 20:00 Troponin T < 0.010 ng/mL (0.00-0.029) 09/15/17 20:00 Total Protein 5.9 g/dL (6.3-8.2) L 09/15/17 20:00 Albumin 3.7 g/dL (3.9-5) L 09/15/17 20:00 Albumin/Globulin Ratio 1.7 % 09/15/17 20:00 Triglycerides 100 mg/dL (2-149) 09/17/17 06:36 Cholesterol 134 mg/dL (50-199) 09/17/17 06:36 LDL Cholesterol Direct 59 mg/dL (50-130) 09/17/17 06:36 HDL Cholesterol 55 mg/dL (40-59) 09/17/17 06:36 Cholesterol/HDL Ratio 2.43 % 09/17/17 06:36
[2017-09-19] MEDS: AMBIEN PO PRN (21:51)
--- NOTE | 2017-09-20 09:55 | Event Note ---
Date: 09/20/17 LORRIE was scheduled this morning as requested by primary team. Unfortunately, the patient has refused. Please re-call cardiology if the patient changes his mind and wants to have the LORRIE.
[2017-09-20] MEDS: COREG PO SCH (10:44)
[2017-09-20] MEDS: ELIQUIS PO SCH (10:44)
[2017-09-20] MEDS: ZESTRIL PO SCH (10:44)
[2017-09-20] MEDS: ASPIRIN PO SCH (10:44)
--- NOTE | 2017-09-20 11:37 | Discharge Summary ---
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 Patient has severe weakness in the left lower extremity. Able to lift his leg a bit but unable to walk. No nasal regurgitation of fluids. No diplopia.no fever no chills.patient also has pain left side of the neck. Patient has history of multiple strokes in the past. (1) Acute CVA (cerebrovascular accident) Current Visit: Yes Status: Acute Plan to address problem: Patient has new onset left-sided weakness.Acute CVA w/u even though he had multiple strokes. LORRIE for AM. PATIENT REFUSED UNDERSTANDS AND VERBALIZED THE BENEFIT BUT STILL REFUSED Neurology INPUT NOTED. ALTHOUGH NEUROGIST DOCUMENT NEW STROKE, I HAVE NOT IDEA WHERE THEY SAW THIS. PT/OT. Patient previously on Eliquis then changed to coumadin and now back to Eliquis. Unsure why so many changes and patients compliance although he states he is complaint. MRI and MRA could not be done because of pacemaker. CT OF THE BRAIN NEGATIVE FOR CVA. COMPLAINCE WITH MEDICATION ADVISED. ECHO - EF 40 to 45 percent. May have recurrent emboli . Initiated on Eliquis (2) COPD (chronic obstructive pulmonary disease) Current Visit: Yes Status: Chronic Qualifiers: COPD type: C Chronic bronchitis type: C Emphysema type: unspecified Qualified Code(s): J43.9 - Emphysema, unspecified Plan to address problem: continue Symbicort inhaler and albuterol inhaler. Nebulizers if necessary. (3) Hyperlipidemia Current Visit: Yes Status: Chronic Qualifiers: Hyperlipidemia type: mixed hyperlipidemia Qualified Code(s): E78.2 - Mixed hyperlipidemia Plan to address problem: continue simvastatin 80 mg daily (4) Hypertension Current Visit: Yes Status: Chronic Qualifiers: Hypertension type: essential hypertension Qualified Code(s): I10 - Essential (primary) hypertension Plan to address problem: continue lisinopril 10 mg once a day and Coreg 25 mg twice a day (5) Hyperthyroidism Current Visit: Yes Status: Chronic Plan to address problem: continue methimazole 20 mg once a day (6) CHF (congestive heart failure)- Systolic Current Visit: Yes Status: Chronic Qualifiers: Congestive heart failure type: combined Congestive heart failure chronicity : C Plan to address problem: continue Lasix (7) Coronary artery disease Current Visit: Yes Status: Chronic Qualifiers: Coronary Disease-Associated Artery/Lesion type: [place] artery [place] vs. transplanted heart: N Associated angina: with unspecified angina Plan to address problem: Eliquis 5 mg po bid Disposition: DC/TX-03 SNF [facility] Time spent for discharge: 35 mins Core Measure Documentation - Palliative Care Palliative Care/ Comfort Measures: Not Applicable - Core Measures Any of the following diagnoses?: stroke - VTE Discharge Requirements Deep Vein Thrombosis/Pulmonary Embolism Present on Admission: No - Stroke Discharge Requirements Statin for LDL = or >70 mg/dl on DC: Yes Anticoag for atrial fib/atrial flutter: Not Applicable Antithrombotic for ischemic stroke: Yes Exam - Physical Exam Narrative exam: VITAL SIGNS: Reviewed. GENERAL: The patient appeared well nourished and normally developed. Vital signs as documented. HEAD: No signs of head trauma. EYES: Pupils are equal. Extraocular motions intact. EARS: Hearing grossly intact. MOUTH: Oropharynx is normal. NECK: No adenopathy, no JVD. CHEST: Chest with clear breath sounds bilaterally. No wheezes, rales, or rhonchi. CARDIAC: Regular rate and rhythm. S1 and S2, without murmurs, gallops, or rubs. VASCULAR: No Edema. Peripheral pulses normal and equal in all extremities. ABDOMEN: Soft, without detectable tenderness. No sign of distention. No rebound or guarding, and no masses palpated. Bowel Sounds normal. MUSCULOSKELETAL: Good range of motion of all major joints. Extremities without clubbing, cyanosis or edema. NEUROLOGIC EXAM: Alert and oriented x 3. focal deficits (LUE and LLE weakness.3/5 power in lower extremity.4/5 in upper extremity) Speech normal. Follows commands. PSYCHIATRIC: Mood normal. SKIN: No rash or lesions. - Constitutional Vitals: Temp Pulse Resp BP Pulse Ox 98.3 F 62 20 134/82 100 09/20/17 08:04 09/20/17 10:44 09/20/17 08:04 09/20/17 10:44 09/20/17 08:04 Plan Activity: advance as tolerated, fall precautions Diet: low cholesterol Special Instructions: record daily BP diary, record blood sugar diary, smoking cessation, physical therapy, occupational therapy Follow up with: PRIMARY CARE, [Primary Care Provider] - 3-5 Days CLAUDY LEIVA MD [Staff Physician] - 7 Days
[2017-09-20] MEDS ORDERED: Fluarix Quad 2017-2018(36 MOS+ IM ONE (14:00)
--- NOTE | 2017-09-20 14:37 | Consultation ---
History of Present Illness History of present illness: STROKE IS CLEARLY BETTER AND BETTER MOVEMENT OF THE LEFT ARM/FACE/LEG LESS CONFUSION NOTED EXPLAINED STROKE DX TO THE PATIENT HE IS WILLING TO GO TO SHORT TERM REHAB REC. ANTICOAGULATION Medications and Allergies Allergies Allergy/AdvReac Type Severity Reaction Status Date / Time No Known Allergies Allergy Verified 09/15/17 19:29 Home Medications Medication Instructions Recorded Confirmed Last Taken Type Budesoni/Formotero 160-4.5(Nf) 2 puff IH BID 05/13/16 09/16/17 05/13/16 History [Symbicort 160-4.5 (Nf)] ALBUTEROL Inhaler [ProAir HFA 2 puff IH QID PRN #30 container 09/20/16 09/16/17 05/13/16 Rx Inhaler] Furosemide [Lasix TAB] 40 mg PO DAILY PRN 02/06/17 09/16/17 Unknown History Lisinopril [Zestril TAB] 10 mg PO QDAY 06/11/17 09/16/17 Unknown History ALBUTEROL NEB's [Proventil 0.083% 2.5 mg IH QIDRT PRN #30 day 07/19/17 09/16/17 Unknown Rx NEBS] Apixaban [Eliquis] 5 mg PO BID #30 day 07/19/17 09/16/17 Unknown Rx Carvedilol [Coreg] 25 mg PO BID #60 tablet 07/19/17 09/16/17 Unknown Rx Methimazole 20 mg PO DAILY #30 day 07/19/17 09/16/17 Unknown Rx Rosuvastatin Calcium [Crestor] 40 mg PO QHS 09/16/17 09/16/17 Unknown History Active Meds: Active Medications Acetaminophen (Tylenol) 650 mg PO Q4H PRN PRN Reason: Pain MILD(1-3)/Fever >100.5/[place] Apixaban (Eliquis) 5 mg PO Q12HR RADHA PRN Reason: Protocol Last Admin: 09/20/17 10:44 Dose: 5 mg Aspirin (Aspirin) 325 mg PO QDAY [facility] Last Admin: 09/20/17 10:44 Dose: 325 mg Bisacodyl (Dulcolax) 10 mg [place] QDAY PRN PRN Reason: Constipation unrelieved by MOM Carvedilol (Coreg) 25 mg PO BID [facility] Last Admin: 09/20/17 10:44 Dose: 25 mg Sodium Chloride (Nacl 0.9% 1000 Ml) 1,000 mls @ 100 mls/hr IV DIRECT RADHA Lisinopril (Zestril) 10 mg PO QDAY RADHA Last Admin: 09/20/17 10:44 Dose: 10 mg Magnesium Hydroxide (Milk Of Magnesia) 30 ml PO Q4H PRN PRN Reason: Constipation Ondansetron HCl (Zofran) 4 mg IV Q8H PRN PRN Reason: N/V unrelieved by Reglan Oxycodone HCl (Roxicodone) 10 mg PO Q6H PRN PRN Reason: Pain, Moderate (4-6) Last Admin: 09/18/17 10:38 Dose: 10 mg Sodium Chloride (Sodium Chloride Flush Syringe 10 Ml) 10 ml IV PRN PRN PRN Reason: LINE FLUSH Zolpidem Tartrate (Ambien) 10 mg PO QHS PRN PRN Reason: Insomnia Last Admin: 09/19/17 21:51 Dose: 10 mg Physical Examination - Vital Signs Vital Signs: Vital Signs Temp Pulse Resp BP Pulse Ox 97.4 F L 61 18 156/90 100 09/15/17 19:25 09/15/17 19:25 09/15/17 19:25 09/15/17 19:25 09/15/17 19:25 Results - Laboratory Findings CBC and BMP: 09/15/17 20:00 09/15/17 20:00
[2017-09-20 15:30] VITALS: BP 100/58
== END 2017-09-20 16:00 | DRG 65 ==
LOC: ED 19:17 → 3A 22:44
PROVIDERS: ADMIT Internal Medicine; ATTEND Internal Medicine
PROC: 3E0234Z Introduction of Serum, Toxoid and Vaccine into Muscle, Percutaneous Approach (ICD-10-PCS; principal; 2017-09-20)
DX: I63.9 Cerebral infarction, unspecified (principal); G81.94 Hemiplegia, unspecified affecting left nondominant side; J44.9 Chronic obstructive pulmonary disease, unspecified; I10 Essential (primary) hypertension; E78.5 Hyperlipidemia, unspecified; E05.90 Thyrotoxicosis, unspecified without thyrotoxic crisis or storm; I48.91 Unspecified atrial fibrillation; Z53.29 Procedure and treatment not carried out because of patient's decision for other reasons; I25.10 Atherosclerotic heart disease of native coronary artery without angina pectoris; I50.9 Heart failure, unspecified; Z23 Encounter for immunization; I25.2 Old myocardial infarction; Z95.0 Presence of cardiac pacemaker; Z95.5 Presence of coronary angioplasty implant and graft; Z87.891 Personal history of nicotine dependence; Z79.899 Other long term (current) drug therapy
CPT/HCPCS: 36415; 70450; 70498; 80053; 80061; 82550; 82553; 84484; 85025; 85610; 85670; 85730; 90686; 93005; 93010; 93306; 93880; 96374; G8978-GP; G8979-GP; G8987-GO; G8988-GO; J1170; Q9967